=== PATIENT | female | born 1975 | race Two or more races ===

== ENCOUNTER 2024-09-12 08:37 | Emergency (ER) | payer MEDICAID, SELFPAY ==
[2024-09-12 08:38] VITALS: BMI 24.2
[2024-09-12 08:47] VITALS: BP 114/76; PULSE 95; RESP 17; TEMP 37.1; O2SAT 99
--- NOTE | 2024-09-12 08:54 | XR_ITS ---
Examination: PA lateral chest 2 views Technique: Upright PA lateral chest 2 views Exam date and time: September 12, 2024 0905 hrs. Indications: Coughing 10 days Findings: Normal heart size Prominent hilar regions with accentuation of the perihilar basilar bronchovascular markings No lobar pneumonia Moderate osteopenia Impression: Mildly prominent hilar regions, clinical correlation advised, differential would include pulmonary artery hypertension Bronchitis pattern
[2024-09-12] MEDS: DEXAMETHASONE SOD PHOS INJ 10 MG/ML VIAL PO (09:03)
--- NOTE | 2024-09-12 09:49 | EDNOTE_ITS ---
<Statement entered by Alda Daniels MD - 09/20/24 16:19> As co-signing physician, I was present and available for consult prn. I concur with the plan and care as documented by the midlevel provider. ED SOB =RME/HPI General Chief Complaint: Shortness of Breath/Dyspnea Stated Complaint: DIFF BREATHING/CXP x 7 DAYS Time Seen by Provider: 09/12/24 09:06 Arrival date/time: 09/12/24 08:37 49-year-old female history of asthma presents to the emergency department today complains of cough, congestion and bodyaches ongoing x 7 days patient reports positive sick contacts at home Limitations: no limitations Related Data Previous Rx's ?Medication ?Instructions ?Recorded albuterol sulfate 90 mcg/actuation 2 puff inhalation Q6H PRN 09/12/24 aerosol inhaler (Ventolin HFA) shortness of breath or wheezing #8.5 grams benzonatate 100 mg capsule 100 mg PO TID #14 caps 09/12/24 ibuprofen 600 mg tablet 600 mg PO Q6H #30 tabs 09/12/24 Allergies Allergy/AdvReac Type Severity Reaction Status Date / Time codeine AdvReac Severe Nausea/Vomi Verified 09/12/24 08:41 tiing hydrocodone AdvReac Severe Nausea Verified 09/12/24 08:41 Review of Systems Review of Systems Systems Reviewed: All systems reviewed, normal except as documented Constitutional Constitutional: Reports system reviewed and no additional complaints, except as documented, Denies fever(s) and Denies headache(s) Eyes Eyes: Reports system reviewed and no additional complaints, except as documented and Denies blurry vision ENT Ears, Nose, Mouth, and Throat: Reports system reviewed and no additional complaints, except as documented, Denies headache(s), Reports nasal congestion and Reports nasal discharge Cardiovascular Cardiovascular: Reports system reviewed and no additional complaints, except as documented, Denies chest pain and Denies dyspnea Respiratory Respiratory: Reports system reviewed and no additional complaints, except as documented, Reports chest congestion, Reports cough and Denies dyspnea Gastrointestinal Gastrointestinal: Reports system reviewed and no additional complaints, except as documented and Denies abdominal pain Integumentary/Breasts Skin/Breast: Reports system reviewed and no additional complaints, except as documented and Denies rash Neurologic Neurologic: Reports system reviewed and no additional complaints, except as documented, Reports as per HPI and Denies headache(s) Past Medical History Social History SMOKING STATUS: Heavy (> 1 pack/day) ED Exam General Limitations: Present no limitations General appearance: Present alert and in no apparent distress Head Head exam: Present atraumatic, normocephalic and normal inspection Eye Eye exam: Present normal appearance, PERRL and EOMI; Absent conjunctival injection ENT ENT exam: Present normal exam, normal oropharynx and mucous membranes moist Neck Neck exam: Present normal inspection, full ROM and trachea midline Chest Chest inspection: Present normal inspection and symmetric chest wall rise Respiratory Respiratory exam: Present normal lung sounds bilaterally; Absent respiratory distress, wheezes or stridor Cardiovascular Cardiovascular exam: Present regular rate, normal rhythm and normal heart sounds Abdominal Exam Abdominal exam: Present soft and normal bowel sounds; Absent distention, tenderness, guarding, rebound or rigidity Extremities Exam Extremities exam: Present normal inspection and full ROM Back Exam Back exam: Present normal inspection and full ROM Neurological Exam Neurological exam: Present alert, oriented X3 and CN II-XII intact Psychiatric Psychiatric exam: Present normal affect and normal mood Skin Skin exam: Present warm, dry, intact and normal color Course Quality Measures none Orders Category Date Time Status Bedside Influenza A&B Antigen Test NOW Care 09/12/24 08:55 Completed XR chest 2V Stat Exams 09/12/24 08:54 Completed Dexamethasone Inj [Decadron Inj] Med 09/12/24 08:54 Discontinued 10 mg PO X1 ONE Vital Signs Vital signs: Vital Signs Temperature 98.7 F 09/12/24 08:47 Pulse Rate 95 09/12/24 08:47 Respiratory Rate 17 09/12/24 08:47 Blood Pressure 114/76 09/12/24 08:47 Pulse Oximetry (%) 99 09/12/24 08:47 Oxygen Delivery Method Room Air 09/12/24 08:47 O2 saturation 99% room air within normal limits Shortness of Breath / Dyspnea Patient data External records reviewed:: [facility] previous records Clinical information provided by:: patient Social determinants that could affect healthcare access:: none Patient has the following chronic illnesses:: See history How is presenting disease/condition affected by chronic disease/condition?: exacerbated by Evaluation data The following diagnostics were reviewed and interpreted by me:: lab results and radiology exam(s) Lab and/or radiology exams considered but not ordered:: Labs and radiology obtained Interpretation Summary: Reviewed by me Medications / Prescriptions Medications or Prescriptions considered but not ordered:: Given Medication administrations:: Medication Administration History Discontinued Medications Dexamethasone Sodium Phosphate (Dexamethasone Sod Phos Inj 10 Mg/Ml Vial) 10 mg PO X1 ONE Stop: 09/12/24 08:55 Last Admin: 09/12/24 09:03 Dose: 10 mg Documented By: AC Given Consultations Consultation(s) initiated? (list below): No Diagnosis Shortness of Breath Differential Diagnosis: acute exacerbation of chronic obstructive airways disease, community acquired pneumonia and asthma with exacerbation Most likely diagnosis given after review of the tests above:: URI Admission Indicated Admission indicated?: not indicated Admission Request Was there a request for admission?: No Disposition Plan Disposition Plan: Discharge Discharge Attestation Discharge Attestation: The patient and all family members were given an opportunity to ask questions and understood the discharge instructions. Discharge instructions specifically effects, indications for sooner follow up or return to the emergency department, and the expected course of current diagnosis. Patient condition: Stable Discharge Plan Plan Patient Disposition: HOME (Self Care) Disposition Comment: Stable Prescriptions/Referrals Prescriptions/Med Rec: New benzonatate 100 mg capsule 100 mg PO TID Qty: 14 0RF ibuprofen 600 mg tablet 600 mg PO Q6H Qty: 30 0RF albuterol sulfate [Ventolin HFA] 90 mcg/actuation HFA aerosol inhaler 2 puff inhalation Q6H PRN (Reason: shortness of breath or wheezing) Qty: 8.5 0RF Referrals: Gerardo Hinojosa MD [Primary Care Provider] - 09/13/24 Problem List Clinical Impression: URI (upper respiratory infection) Patient/Caregiver Discharge Instructions Education Materials: ED URI, Viral, No Abx (Adult) Additional Instructions: Please follow up with your primary care doctor in the next 24-48hrs for any worsening symptoms return here immediately Print Language: Italian Stand Alone Forms: Perla Award Info., Patient Portal Info Letter PA/ABISAI Supervising Physician PA/ABISAI Supervising Physician: Dr DANIELS
== END 2024-09-12 09:58 | disposition home or self-care (01) ==
PROVIDERS: Emergency Provider Emergency Medicine; PCP Family Medicine
DX: J06.9 Acute upper respiratory infection, unspecified (principal)
CPT/HCPCS: 71046; 87400; 99283; J1100